=== PATIENT | male | born 1970 | race Caucasian/White ===

== ENCOUNTER → 2023-12-26 | Outpatient (CLI) | payer MEDICAID, SELFPAY ==
--- NOTE | 2023-12-26 09:58 | CT_ITS ---
CT BILATERAL LOWER EXTREMITY WITH 3-D IMAGING CLINICAL INDICATION: Templating for right GREY. TECHNIQUE: Axial CT images of the bilateral lower extremity (including both hips and both knees) was performed without IV contrast material. Coronal and sagittal reformats were provided. The protocol utilizes one or more of the following dose reduction techniques: automated exposure control, adjustment of mA and/or kV according to patient size, and/or use of iterative reconstruction technique. RADIATION DOSAGE (If Supplied By Facility): CTDIvol = ( 13.84 ) mGy, DLP = ( 859.33 ) mGycm COMPARISON: Pelvis, right hip, and right knee radiographs dated 11/16/2023. FINDINGS: Bones: There is severe degenerative arthrosis of the right hip joint with [id number], marginal osteophyte formation, remodeling of the articular surfaces, and subchondral sclerosis/cyst formation. There is moderate degenerative arthrosis of the left hip joint with moderate joint space narrowing. There is degenerative disc disease in the visualized lumbosacral spine. There are small enthesophytes at the superior poles of the patellae bilaterally at the distal insertion of the quadriceps tendons. The knee joint spaces are well-preserved. Osseous structures are intact without evidence of fracture or dislocation. No lytic or blastic osseous masses. Soft Tissues: There are tiny knee joint effusions bilaterally. The deep soft tissue structures are unremarkable. The superficial soft tissues are unremarkable without evidence of edema, hematoma, or foreign body. CT/Extremity Lower without Contra IMPRESSION: Degenerative arthrosis of the hip joints bilaterally, severe on the right. Small enthesophytes at the superior poles of the patellae bilaterally at the distal insertion of the quadriceps tendons. Tiny knee joint effusions bilaterally. Electronically Signed: Michael Myers MD at 8:28 EDT ,
== END | disposition home or self-care (01) ==
LOC: CT 09:56
PROVIDERS: PCP Internal Medicine Adolescent Medicine; Referring Provider Orthopaedic Surgery; Visit Provider Orthopaedic Surgery
DX: M16.11 Unilateral primary osteoarthritis, right hip (principal)
CPT/HCPCS: 73700

== ENCOUNTER 2024-01-05 05:56 | Day surgery (SDC) | payer MEDICAID, SELFPAY ==
--- NOTE | 2023-12-14 07:33 | EKG12_ITS ---
Test Reason : PREOP Blood Pressure : / mmHG Vent. Rate : 053 BPM Atrial Rate : 053 BPM P-R Int : 146 ms QRS Dur : 072 ms QT Int : 388 ms P-R-T Axes : -23 042 052 degrees QTc Int : 364 ms Sinus bradycardia Otherwise normal ECG Confirmed by Toro Gaxiola ([id number]), newspaper managing editor ADEN VALDEZ ([id number]) on 12/15/2023 8:17:36 AM Referred By: Akira Reyes Confirmed By:Toro Gaxiola
[2023-12-14 08:01] LABS: Absolute Lymphocyte Count 2.35 X10^3/uL (0.83-4.51); Absolute Neutrophil Count 5.9 X10^3/uL (2.0-7.7); Basophil# 0.05 X10^3/uL; Basophil% 0.5 % (0-1); Eosinophil# 0.35 X10^3/uL; Eosinophils% 3.7 % (0-5); Hematocrit 44.4 % (40-54); Hemoglobin 14.5 g/dL (13.0-16.5); Lymphocyte # 2.35 X10^3/ul (0.83-4.51); Lymphocyte % 24.5 % (19-41); Mean Corp Hgb Conc 32.7 g/dL (32-36); Mean Corpuscular Hgb 30.3 pg (27.0-32.0); Mean Corpuscular Volume 92.7 fL (80-94); Mean Platelet Vol. 10.5 fl (6.2-12.0); Monocyte# 0.84 X10^3/uL; Monocyte% 8.8 % (0-10); NRBC Flagged by Analyzer 0 % (0-5); Neutrophil # 5.93 X10^3/uL (2.7-7.7); Neutrophil % 61.9 % (47-70); Platelet Count 197 K/mm3 (150-450); RBC Distribution Width CV 13.4 % (11.6-14.6); RBC Distribution Width SD 46.3 fl (35.1-43.9); Red Blood Count 4.79 M/mm3 (4.6-6.2); White Blood Count 9.6 K/mm3 (4.4-11.0)
[2023-12-14 08:22] LABS: Anion Gap 4 (5-15); BUN 19 mg/dL (7-18); BUN/Creat Ratio 21.4 RATIO (10-20); Calcium,Total 9.3 mg/dL (8.5-10.1); Chloride 109 mmol/L (98-107); Creatinine, Serum 0.89 mg/dL (0.70-1.30); EST Glomerular Filtration Rate 96 mL/min (>60); Est Glom Filt Rate - Afr Amer 116 mL/min (>60); Glucose 112 mg/dL (74-106); Magnesium 1.9 mg/dL (1.6-2.6); Potassium 4.2 mmol/L (3.5-5.1); Sodium Level 141 mmol/L (136-145)
[2023-12-14 08:56] LABS: International Normalized Ratio 1.2
[2023-12-14 08:57] LABS: Partial Thromboplast Time 32.5 Seconds (24.1-36.2)
[2023-12-14 09:02] LABS: Hemoglobin A1c 5.3 % (3.8-5.6)
[2023-12-22 11:59] LABS: Cotinine Screen Blood <1.0 ng/mL (.); Fructosamine 217 umol/L (0-285); Nicotine Blood <1.0 ng/mL (.)
[2024-01-05] VITALS (11 sets, daily range): BP systolic 82–136; BP diastolic 50–85; PULSE 51–72; RESP 12–17; TEMP 36.2–36.8; O2SAT 94–100; BMI 26.9
[2024-01-05] MEDS: Scopolamine 1mg/72hr Patch 1 PATCH TD (06:38)
[2024-01-05] MEDS: Magnesium 2 GM for ERAS IV (06:38)
[2024-01-05] MEDS: Lactated Ringers 1,000 ML 999 ML IV (06:38)
[2024-01-05] MEDS: Acetaminophen 500 MG Tablet 1000 MG PO ×2 (06:39→14:08)
[2024-01-05] MEDS: Celecoxib 200 MG Capsule 400 MG PO (06:39)
[2024-01-05] MEDS: Gabapentin 600 MG Tablet PO (06:39)
--- NOTE | 2024-01-05 07:01 | PRE.ANES_ITS ---
ASA Classification* ASA Classification ASA Classification: 2 Assessment & Plan Anesthesia* Anesthesia Assessment Anesthesia Assessment: Discussed sedation and/or anesthesia options, risks, benefits, and alternatives with patient/parents/legal guardian/POA. Questions invited. The patient/parents/legal guardian/POA seems to understand and agrees to proceed with anesthesia plan. Reviewed the physical assessment, medical history, allergy history and patient home medications list prior to surgery/procedure/anesthetic and documented any changes. Performed airway and anesthesia risk assessments. Anesthesia Type Anesthesia Type: Spinal Anesthesia Focused Assessment* Temperature: 98.3 F Pulse Rate: 65 Blood Pressure: 128/85 Respiratory Rate: 16 Pulse Ox: 98 Airway Assessment Mouth opens: >3 cm Mallampati Score: II Focused Labs Anesthesia Preop lab: CBC WBC 9.6 K/mm3 (4.4-11.0) 12/14/23 07:32 RBC 4.79 M/mm3 (4.6-6.2) 12/14/23 07:32 Hgb 14.5 g/dL (13.0-16.5) 12/14/23 07:32 Hct 44.4 % (40-54) 12/14/23 07:32 Plt Count 197 K/mm3 (150-450) 12/14/23 07:32 CHEMISTRY Potassium 4.2 mmol/L (3.5-5.1) 12/14/23 07:32 Sodium 141 mmol/L (136-145) 12/14/23 07:32 Magnesium 1.9 mg/dL (1.6-2.6) 12/14/23 07:32 BUN 19 mg/dL (7-18) H 12/14/23 07:32 Creatinine 0.89 mg/dL (0.70-1.30) 12/14/23 07:32 Glucose 112 mg/dL (74-106) H 12/14/23 07:32 COAG PT 15.0 SECONDS (11.7-14.9) H 12/14/23 07:32 Pre-Assessment Diagnosis/Proposed Procedure Planned Operative Procedure(s): (R) ERAS, Total Hip Replacement Robotic Arm Assist Anesthesia History 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 When Was Last Pacemaker Check QUESTION #4 FULL TEXT: You/Your Family Experience fever (hyperthermia) with Anesthesia Last Oral Intake Last Oral intake: Last Oral Intake NPO since 22:00 01/05/24 06:29 Meds taken in AM with sips of Yes 01/05/24 06:29 water? 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 Female No 12/11/23 13:00 HX of Motion Sickness No 12/11/23 13:00 HX of N/V After Surgery No 12/11/23 13:00 Non-Smoker No 12/11/23 13:00 Duration of Surgery greater Yes 12/11/23 13:00 than 60 minutes Number of Risk Factors 1 12/11/23 13:00 PONV Score Low Risk 12/11/23 13:00 Height & Weight Height & Weight: Anesthesia: Height & Weight Height 5 ft 10 in 01/05/24 06:29 Weight: 85 kg 01/05/24 06:29 Body Mass Index (BMI) 26.9 01/05/24 06:29 Respiratory Assessment Respiratory Assessment - 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 Has anyone observed you stop No 12/11/23 13:00 breathing during sleep? STOP Results Negative 12/11/23 13:00 QUESTION #5 FULL TEXT : Do you snore loudly (louder than talking or can be heard through closed doors)? 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 Specify any problems Hx of Preganancy in last 3 N/A 12/11/23 13:00 Months Nurse Filling Out Transfusion NBUCHER 12/11/23 13:00 & Questions: Date: 12/11/23 12/11/23 13:00 Time: 13:02 12/11/23 13:00 Patient unable to answer at this time (ie. 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 Hx Now No 12/11/23 13:00 Gestational Age (in weeks): EDC: Hx Hx Para Hx Section SAB No 12/11/23 13:00 Active Medications Active Medications: Current Medications Generic Name Dose Route Start Last Admin Trade Name Freq PRN Reason Stop Dose Admin Acetaminophen 1,000 mg 01/05/24 08:00 01/05/24 06:39 Acetaminophen 500 Mg Tablet PO 01/05/24 08:01 1,000 mg X1 ONE Administration Celecoxib 400 mg 01/05/24 08:00 01/05/24 06:39 Celecoxib 200 Mg Capsule PO 01/05/24 08:01 400 mg X1 ONE Administration Dexamethasone Sodium Phosphate 10 mg 01/05/24 08:00 Dexamethasone 10 Mg/Ml Vial IV 01/05/24 08:01 X1 ONE Gabapentin 600 mg 01/05/24 08:00 01/05/24 06:39 Gabapentin 600 Mg Tablet PO 01/05/24 08:01 600 mg X1 ONE Administration Lactated Ringer's 1,000 mls @ 999 mls/hr 01/05/24 08:00 01/05/24 06:38 IV 01/05/24 09:00 999 mls/hr .Q1H1M ALIZA Administration Cefazolin Sodium 2 gm/ Sodium 110 mls @ 150 mls/hr 01/05/24 08:00 Chloride IV 01/05/24 08:43 PREOP ONE Tranexamic Acid 2,000 mg/ 120 mls @ 660 mls/hr 01/05/24 08:00 Sodium Chloride IV 01/05/24 08:10 X1 ONE Lactated Ringer's 1,000 mls @ 125 mls/hr 01/05/24 08:00 IV 01/05/24 15:59 .Q8H ALIZA Magnesium Sulfate 2 gm/ 104 mls @ 208 mls/hr 01/05/24 08:00 01/05/24 06:38 Dextrose IV 01/05/24 08:29 208 mls/hr X1 ONE Administration Lactated Ringer's 1,000 mls @ 15 mls/hr 01/05/24 06:30 IV .Q48H ALIZA Insulin Human Lispro 1 - 6 unit 01/05/24 08:00 Insulin Lispro 100 Unit/Ml Insuln.Pen SC Q4H PRN PRN BG>/= 180, SEE PROTOCOL Protocol Scopolamine HBr 1 patch 01/05/24 08:00 01/05/24 06:38 Scopolamine 1mg/72hr Patch TD 01/05/24 08:01 1 mg X1 ONE Administration PFSH Medical History Wears glasses Arthritis BPH (benign prostatic hyperplasia) Prostate disease High cholesterol Former smoker History of fracture of clavicle Osteoarthritis of right hip Right hip pain Home Medications ?Medication ?Instructions ?Recorded ?Last Taken ?Type amlodipine 10 mg tablet 10 mg PO DAILY 08/14/22 01/05/24 History naproxen 500 mg tablet (Naprosyn) 500 mg PO BID 08/14/22 Unknown History tamsulosin 0.4 mg capsule 0.8 mg PO DAILY 08/14/22 01/05/24 History atorvastatin 40 mg tablet 40 mg PO QDAY 11/16/23 01/04/24 History varenicline 1 mg tablet (Chantix) 1 mg PO BID 12/11/23 01/04/24 History Allergy/AdvReac Type Severity Reaction Status Date / Time No Known Allergies Allergy Verified 01/05/24 06:27 Surgical History History of umbilical hernia repair History of repair of left rotator cuff History of tonsillectomy Social History Smoking Status: Former smoker Review of Systems (Anesthesia) ROS Narrative System reviewed and no additional complaints, except as documented.
[2024-01-05 07:12] LABS: Bedside Glucose 107 mg/dL (74-106)
--- NOTE | 2024-01-05 07:21 | PCM.HP.BLA ---
History and Physical Date of Admission: 01/05/24 [facility] [address] [place] [address] OFFICE VISIT Date of Service: 11/16/23 MR#: [id number] Acct: [id number] Name: AGNES STEVENS Rep #: [id number] : 1970 Provider: Dr. Akira Reyes DO Age/Sex: 53/M [place] [facility] [place] Status: Signed Intake Vital Signs 08/14/2313:09 11/15/2409:24 Height 5 ft 10 in 5 ft 10 in Weight: 186 lb 6 oz BMI 26.7 Intake Visit Reasons: RIGHT HIP Chief Complaint: right hip pain Accompanied by: Self Allergies No Known Allergies Allergy (Unverified 11/16/23 10:29) Medications ?Medication ?Instructions ?Recorded ?Confirmed ?Type amlodipine 10 mg tablet tablet PO 08/14/22 11/16/23 History naproxen 500 mg tablet (Naprosyn) 500 mg PO BID 08/14/22 11/16/23 History tamsulosin 0.4 mg capsule ea PO 08/14/22 11/16/23 History atorvastatin 40 mg tablet 40 mg PO QDAY 11/16/23 11/16/23 History PFSH Medical History (Updated 11/16/23 @ 11:[address] Akira Reyes DO) Osteoarthritis of right hip Right hip pain Social History (Updated 11/16/23 @ 10:54 by Sarahi Russell) Smoking Status: Current every day smoker HPI RIGHT HIP Details: This documentation accurately reflects the service provided and the decisions made by me, Dr. Akira Reyes DO 11/16/23 0804. Part of today?s visit was documented by [ ], acting as scribe. AGNES STEVENS is a 53 year old M here today for right hip pain. Patient notes that he has had right hip pain for about 2 years. He states that when he was in high school he hurt his hip playing basketball. He was diagnosed with bursitis and he did PT until recently. Patient denies any prior surgeries to his hip or his back. He states that he has groin pain and pain in the joint. He denies any radiating pain, numbness or tingling. He denies any back pain. He notes that he saw Dr Peres and he had 4 injections into his lateral hip which was helpful until the last session. His last injection was over 3 months ago. He denies any physical therapy. He has increased pain putting on socks and ambulation. He states that when he stands his pain increases. He is taking naproxen for pain. He had xrays in 08/14/22. He states that he tore his ACL 12 years ago and notes that he has no knee pain. Patient has a clicking into his knee. He denies any bracing. Ortho Exam General General: Yes no acute distress Neurologic: Yes alert and Yes oriented x3 Psychologic: Yes reasonable and appropriate Right Knee Skin/Wound: Yes CDI, No erythema, No ecchymosis and No swelling Knee ROM: Yes ROM-Extension -20 to 0 (full) and Yes ROM-Flexion 0-140 Examination: No Med jt line tenderness, No Lat jt line tenderness and No Berenice's Test Stability: 3+: Anterior Drawer, 3+: Elvira and 3+: Posterior Drawer KNEE: dry skin and hair loss on lower leg. Right Hip Skin: No Ecchymosis, No soft tissue swelling and No Erythema internal rotation @90 degree flexion: 10 degrees external rotation @90 degree extension: 12 degrees HIP: pain with IR/ER He is able to plantarflex and dorsiflex the ankle Head: Normocephalic Atraumatic Chest: symmetrical rise, non-labored breathing, no audible wheeze Abdomen: no guarding, non-rigid Supplemental Info 08/14/2022 x-ray right hip: advanced hip arthrosis joint space narrowing subchondral cystic changes 08/14/2022 x-ray lumbar spine: Multilevel endplate spondylosis multilevel degenerative disc disease with multilevel disc space narrowing lower lumbar facet arthrosis Coding Level of Care Code Off vis,est,level 4 Diagnoses Primary osteoarthritis of right hip M16.11 Osteoarthritis type: primary Old complete tear of anterior cruciate ligament of right knee M23.51 Assessment and Plan Assessment and Plan (1) Osteoarthritis of right hip: Status: Acute Qualifiers: Osteoarthritis type: primary Qualified Code(s): M16.11 - Unilateral primary osteoarthritis, right hip (2) Old complete tear of anterior cruciate ligament of right knee: Status: Acute Orders: Orders HIP, UNI W/ Pelvis 2-3 Views Today M16.11 - Unilateral primary osteoarthritis, right hip Knee 4 or More Views Today M25.561 - Pain in right knee Plan Spoke with the patient about the anatomy of the hip and etiology of his pain. Explained that his osteoarthritis has progressed dramatically and his hip has collapsed. This has contributed to his right leg being shortened. Spoke with the patient about his options- anti inflammatories, injections, physical therapy, or a total hip arthroplasty. Explained he needs to stop smoking 6 weeks prior to and after surgery due to the increased infection risk. Spoke with him about the total hip arthroplasty procedure, risks and benefits. Risks, benefits and alternatives of surgery reviewed including but not limited to bleeding, infection, nerve, foot drop, artery and/or tissue damage, fracture, VTE, leg length discrepancy, dislocation, need for hip precautions, continued pain and expected post-operative course. He will be on a blood thinner post op and he is unable to take NSAIDs. He is also unable to take NSAIDs 1 week prior to surgery. Explained the risk of continued leg length discrepancy. He will need a CT scan for the makoplasty. Patient will be on hip precautions for 3 months. Patient will be same day surgery although he has multiple stairs at home. He will use a walker and transition to a cane, with physical therapy. He will continue to improve and it may take 2 years to completely recover. 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 He should speak with his PCP about chantix to help him stop smoking. He also needs to stop for 6 weeks post op as well. He will need to be tested for nicotine 3 weeks prior to surgery. He wanted to try an over the counter knee brace prior to trying an ACL brace. Tentative surgery date January 05, 2024 Follow up for 2 week post op or sooner if pain, swelling, numbness or associated symptoms, or concerns develop. All questions answered. Patient in agreement of plan. 11/16/23 1144 <Electronically signed by Akira Reyes DO> Date Akira Reyes DO I have examined the patient and the H&P has been reviewed. There are no clinical changes since date of exam.
--- NOTE | 2024-01-05 08:00 | FEM_PTH ---
PATIENT: AGNES STEVENS [place] [facility] [place][id number] AGE/SX: 53/M ROOM: RE01/05/[address]: Dr. Akira Reyes DO : 1970 BED: DIS: 01/05/2024 SPEC #: [id number] RECD: 01/05/24 11:14 STATUS: PARTH REMarbella #: [id number] SUMIT: 01/05/24 08:[address]: Akira Reyes DEPT: SURGICAL PATHOLOGY RECD BY: Magy Magallanes ENTERED: 01/05/24 12:51 SP TYPE: FEM HEAD OTHR DR: Dr. Mark Tolliver MD Tissues: Femoral region, NOS Procedures: Decalcification bone/plaque Surgery Specimen Level V HEADER OPERATION: Total hip replacement robotic arm assist PRE-OP DIAGNOSIS: Osteoarthritis of right hip TISSUE SUBMITTED: Right hip bone and tissue MICROSCOPIC DIAGNOSIS Right hip bone and soft tissue, total hip replacement/resection: Femoral head with degenerative osteoarthritic changes. Fragments of dense fibroconnective tissue and reactive synovial tissue. SJ: 01/08/2024 MICROSCOPIC DESCRIPTION Slides are reviewed. GROSS DESCRIPTION Received is one container labeled with the patient's name and designated bone and soft tissue right hip. The specimen consists of a femoral head with portion of femoral neck. The deformed femoral head measures 5.5 x 6.0 x 3.5 cm. A portion of femoral neck measures up to 1.5cm in length. Also present attached to the femoral head is a piece of soft tissue measuring 2.5 x 1.0 x 0.5cm. Detached piece of tissue entirely consists of bone reaming which measures in aggregate 6.0 x 6.0 x 1.5cm. Special Assets Officer sections are submitted in two cassettes as follows: 1 - soft tissue attached to femoral head, entirely submitted, 2 - femoral head after decalcification. / SJ. 01/05/2024 TC:5 CPT: 35173, 19767
[2024-01-05] MEDS: Cefazolin 2 GM in 0.9% Normal Saline (100mL Bag) 100 ML IV ×2 (08:09→14:09)
[2024-01-05] MEDS: dexAMETHasone 10 MG/ML Vial IV (08:25)
[2024-01-05] MEDS: TRANEXAMIC ACID 2,000 MG in 0.9% Normal Saline (100mL Bag) 100 ML 660 MG IV (08:25)
[2024-01-05] MEDS: Lactated Ringers 1,000 ML 100 ML IV (09:00)
--- NOTE | 2024-01-05 10:35 | PCM.OP.BLANK ---
Operative Report Date of Procedure: 01/05/24 Preoperative diagnosis: Right hip DJD Postoperative diagnosis: Same Procedure: CT-guided Makoplasty assisted right total hip arthroplasty Implants: Jesus Accolade II stem size 5, 127 degree neck angle -2.5 head neck length 54 mm Trident II acetabular shell with 40 mm cancellous screw 36 mm ceramic head, 10 degree Trident X3 polyethylene insert. Anesthesia: Spinal EBL: 175 cc Complications: None Condition: Stable to PACU Stem Dryer Maintainer Markus Olivarez. My physician power plant assistant was a vital part of this case. He was important in appropriate retraction during the case, and protection of soft tissues during procedure. His intimate knowledge of the case and my steps aided in safe and expedient completion of the procedure as well as appropriate position of the extremity during the case. He was also vital in assisting with closure under my direct supervision. Indication for procedure: This is a 53-year-old male who has had long-standing arthrosis of the hip who has failed conservative treatment and wished to undergo total hip arthroplasty. We did discuss operative versus nonoperative intervention including risks of bleeding, infection , nerve artery tissue damage, need for further surgery, fracture, leg length discrepancy dislocation blood clot and need for postoperative physical therapy and postoperative expectations. An informed consent was signed. Procedure: Patient was met in the preoperative holding area once again the operative extremity was identified by both patient and physician and was marked. Patient was met by anesthesia . Anesthesia was started. patient was then positioned in the lateral decubitus position on a well-padded pegboard with an axillary roll. All bony prominences were checked and padded. The patient was prepped and draped in the usual sterile fashion. A timeout was called to ensure the proper patient procedure and extremity were being contemplated. Anatomic landmarks were palpated and marked for a standard posterior lateral approach. Prior to this the ASIS was palpated and 3 fingerbreadths proximal to this 3 pins were placed at a 45 degree angle into the iliac crest with good purchase, stab incisions were made with a 15 blade into the skin prior to placement. The Makoplasty array was then secured. A 10 blade scalpel was used to make a posterior incision through the skin and subcutaneous tissue. retractors were used and electrocautery was used to maintain meticulous hemostasis and dissect full-thickness flaps until the gluteal fascia was reached. The gluteal fascia was incised in line with the gluteal fibers. The bursal tissue was then freed from the underside and a Charnley retractor was placed. The femoral trochanteric checkpoint was placed and leg length was assessed using the trochanteric checkpoint and an EKG lead that was placed on the knee prior to prepping the leg .the fat pad was then elevated off of the external rotators with electrocautery and the external rotators were dissected off of the greater trochanter including the piriformis and were tagged with #1 Ethibond for later repair. The joint capsule opened with posterior trapdoor technique. The hip was surgically dislocated. The measurement on the preoperative CT from the top of the lesser trochanter to the femoral neck cut was marked Hohmann was placed around the lesser trochanter. A neck cutting guide was used to heather the neck with a Bovie and an oscillating saw was used complete the femoral neck cut. The femoral head was then removed and sized. We then turned our attention to the acetabulum. A Bovie was used to make a perforation in the anterior joint capsule and a Savage retractor was placed this was repeated in the 6 o'clock position and a wide carolina was placed there. With a long handled knife the labral and pulvinar tissue were removed. We then registered the acetabulum with the pointing array and confirmed our landmarks. Once the socket was thoroughly prepared and labral tissue and pulvinar was removed we single reamed with the robotic arm. We then used the robotic arm to position the acetabular implant and impacted it into place under robotic guidance. We then proceeded to place a posterior superior screw by drilling first measuring and inserting the screw. We then inserted a trial liner. And turned our attention back to the femur at this point a femoral elevator was used. As well as a pointed wide Hohmann around the lesser trochanter and a Hohmann to help retract the gluteus medius. A box chisel was used to remove excess lateral neck followed by a canal finder and a lateralizing reamer. This was followed by sequential broaches. Attention was made of the version within the canal based on preoperative templating. Once the final broach was seated we then trialed reduced the hip it was determined that a 127 degree neck angle with a -2.5 neck length was the appropriate size. We then checked stability with shuck testing as well as flexion and internal rotation. then proceeded with hip extension and checked leg lengths at the knees and heels as well as with the trochanteric checkpoint and knee EKG lead. At this point trials were removed. A liner was inserted to the cup. The femoral stem was inserted. We re-trialed and then proceeded to impact the femoral head onto the Bharath taper. We then surgically reduce the hip check stability again and leg lengths and were satisfied. Betadine rinse was allowed to sit for 5 minutes while everyone changed their gloves. Thorough irrigation was performed. Followed by closure of the external rotators with #2 FiberWire followed by closure of gluteal fascia with #1 Ethibond. 0 Vicryl fat stitches and 2-0 Vicryl subcutaneous stitches and shawn in the skin. [place] were placed in the skin pin sites over the iliac crest and dressed with a Mepilex dressing. The main incision was dressed with a Mepilex ag dressing and an abduction pillow was placed. Patient tolerated the procedure well there was no intraoperative complications all counts were correct and the patient was brought back to the PACU in stable condition
--- NOTE | 2024-01-05 10:36 | PCM.DC ---
Discharge Instructions Diet Discharge Diet: No restrictions Activity Weight Bearing Status: Weight bearing as tolerated Dressing / Incision Call your doctor if you observe: Shortness of breath and Chest pain Additional Dressing/Incision Instructions:: Do not shower 72hrs. Begin daily showering warm water antibacterial soap postop day #3( 72hrs Post-operatively) and then daily. Leave the dressing on for 72 hours postoperatively then may remove prior to first shower and change dressing daily after this until no drainage for 2 consecutive days then may leave open to air. Follow hip precautions that were reviewed in hospital. Wear compression stockings, may remove at night. Start physical therapy as directed in hospital. Follow prescriptions instructions do not take any other pain medication or differ dosing without consulting your physician. Do not take oral NSAIDs until blood thinner has been completed , then may begin the day after completion if needed . Call Dr. Reyes's office with any concerns. Follow Up Care Please Follow Up With: Akira Reyes DO When: 2 weeks Test Results: Test results from this visit will be discussed in further detail at your follow-up appointment, if applicable. Discharge Plan Admission Primary Reason for Your Visit: Right total hip arthroplasty Attending Provider: Akira Reyes Primary Care Provider: Mark Tolliver Instructions Print Language: [place] Discharge Orders/Prescriptions Prescriptions: New acetaminophen 500 mg tablet 1,000 mg PO Q6H Qty: 90 0RF cephalexin 500 mg capsule 1,000 mg PO Q8H Qty: 4 0RF Rx Instructions: Take 2 tabs before you go to bed and 2 tabs after 5 AM morning after surgery when you wake up oxycodone 5 mg tablet 5 - 10 mg PO Q6H PRN (Reason: pain) 7 Days Qty: 60 0RF Eliquis 2.5 mg tablet 2.5 mg PO BID Qty: 42 0RF Rx Instructions: Begin morning after surgery. Continued tamsulosin 0.4 mg capsule 0.8 mg PO DAILY Patient Comments: TAKE 2 CAPSULES BY MOUTH EVERY DAY amlodipine 10 mg tablet 10 mg PO DAILY atorvastatin 40 mg tablet 40 mg PO QDAY varenicline [Chantix] 1 mg tablet 1 mg PO BID Held naproxen [Naprosyn] 500 mg tablet 500 mg PO BID Hold Instructions: Resume on 01/20/24. May resume after completion of blood thinner if needed Other Ambulatory Orders: 12 Lead EKG (Routine) Timeframe: 20231214 Location: None Selected Ordered By: Dr. Akira Reyes Referrals / Follow Up: Mark Tolliver MD [Primary Care Provider] - Disposition Disposition (needs filled in before D/C Order can be placed): Home, Self Care
--- NOTE | 2024-01-05 10:55 | RAD_ITS ---
EXAM: XR RIGHT HIP WITH PELVIS WHEN PERFORMED, 2 VIEWS CLINICAL INDICATION: post op -- in PACU TECHNIQUE: Two or three views of the right hip with pelvis when performed. COMPARISON: No relevant prior studies available. FINDINGS: BONES/JOINTS: Right hip prosthesis components appear well positioned and well aligned. SOFT TISSUES: There is a row of superficial surgical clips over the right hip and soft tissue swelling and gas consistent postoperative exam. The soft tissues are not fully included. RAD/Hip Min 2 Views (Portable) IMPRESSION: Well-positioned right hip prosthesis components and early postoperative soft tissue changes. Electronically Signed: Tg Reno MD at 1:44 EDT ,
--- NOTE | 2024-01-05 11:37 | PCM.POSTANE2 ---
Anesthesia Postop Eval I Sum Anesthesia Postop Eval I Summary Anesthesia Postop Eval I Summary: Anesthesia Postop Eval I: Assessment Summary Airway patent Spontaneous unlabored respirations Mental status nausea Vomiting Anesthesia Postop Eval I: Fluid Summary Crystalloid volume administer (ml) Colloids volume administered ( ml) Blood Product volume administered (ml) Total IV fluid infused Anesthesia Postop Eval I: Summary Notes Anesthesia Complication Anesthesia Complication Comment: Post-operative progress note Anesthesia: Postop Eval II Evaluation Mental status: Awake and Calm Pain Level: 2 nausea: No Vomiting: No Complications Anesthesia Complication: No
--- NOTE | 2024-01-05 12:31 | PCM.POST.ANE ---
Anesthesia: Postop Eval I Current Vital Signs Temperature: 97.3 F Pulse Rate: 54 Blood Pressure: 82/61 Respiratory Rate: 14 Pulse Ox: 96 Oxygen Delivery Method: Room Air Assessment Airway patent: Yes Spontaneous unlabored respirations: Yes Mental status: Awake and Calm nausea: No Vomiting: No Anesthesia Complication: No Fluid Hydration Crystalloid volume administer (ml): 1,200 Total IV fluid infused: 1,200 Progress Note Anesthesia document: Postop Eval 1 completed: Yes
== END 2024-01-05 15:57 | disposition home or self-care (01) ==
LOC: SDC 05:57 → AC 05:58
PROVIDERS: Anesthesiology; PCP Internal Medicine Adolescent Medicine; Referring Provider Orthopaedic Surgery; Visit Provider Orthopaedic Surgery
PROC: 8E0Y0CZ Robotic Assisted Procedure of Lower Extremity, Open Approach (ICD-10-PCS; CPT 27130; principal; 2024-01-05 07:30)
DX: M16.11 Unilateral primary osteoarthritis, right hip (principal); F17.200 Nicotine dependence, unspecified, uncomplicated; I10 Essential (primary) hypertension; Z79.899 Other long term (current) drug therapy; E78.00 Pure hypercholesterolemia, unspecified; Z98.890 Other specified postprocedural states
CPT/HCPCS: 27130; 01214; 80323; 36415; 73502; 80048; 82962; 82985; 83036; 83735; 85025; 85610; 85730; 86850; 86900; 86901; 87081; 88307; 88311; 93005; 97162; C1713; C1776; J7120; G0480; J2405

== ENCOUNTER 2024-03-11 16:00 | Outpatient (RCR) | payer MEDICAID, SELFPAY ==
--- NOTE | 2024-01-13 09:32 | HP.PTEVAL ---
Patient's Visit Information Visit Information Visit Information: AGNES STEVENS is a 53 year old M referred to Physical Therapy by Dr. Akira Reyes DO with a diagnosis of R GREY, Posterior/lateral approach DOS: 01/05/24. Date of Evaluation: 01/13/24 Physical Therapist: Rowdy Ybarra DPT Visit Plan Frequency: 2x /Week Duration: 6 Weeks Plan: Start with active ROM of R hip, HS stretching. Progress gait with LRD as able. Add in functional strengthening. May use ice to assist with pain management. Foam rolling for muscle spasms of RLE. Subjective Subjective: Pt. is here today for his initial evaluation with diagnosis of R GREY. DOS: 01/05/24. Pt. arrives today using FWW with good tolerance. Pt. reports having pain, but not terrible. Pt. denies N/T, no calf pain or blurred vision. Pt. pleased thus far with his surgery. Pt. had a posterior/lateral approach. 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 Pt. reports pain was very intense prior to surgery and is pleased thus far. Pt. has bandage in place to take off later this date. Pt. is sleeping in hair with good tolerance. He reports being stiff with getting up/down, but walking is decent. Pt. is having trouble lifting his leg but this is expected. Pt. is hopeful to get back to previous levels of activities without limitations. I discussed hip restrictions with patient with good retention. Pain R hip: Pain Intensity (Out of 10): 4 Pain Intensity Range: 2 and 6 Objective Objective: POSTURE: Pt. has decent posture in stance. Slight wt. shift to L side. Good Wbing throughout RLE. PALPATION: Pt. has bandage in place, no signs of infection. Bandage to be removed tomorrow. Pt. has no calf pain or redness noted. NEURO: normal DTR and normal sensation throughout BLEs. ROM: R HIP: PROM: flexion 80deg, abd 30deg ext 10deg, IR/ER DNT. Tightness noted in B HS. MMT: Pt. was good quad set and glute set. UNable to complete SLR. RLE: Knee: ext 23.5#, flexion 18.1#. LLE: ext 38#, flexion 29.8#. GAIT: pt. ambulates well with FWW. Lacks extension during end of stance phase and limited hip flexion during swing. HEavy use of AD to complete. Pt. reports minimal pain. STAIRS: step to pattern with use of BHR. TU.8sec with FWW 30sec sit to stand rep test: 5 without use of UEs. Balance/Special Test Scores WOMAC Total Score: 48 WOMAC Percentatge: 50.0000 Goals Goal 1:: LTG: Pt. to be I with HEP. Goal Time Frame: 4-6 Weeks Goal 2:: STG: pt. to sleep throughout the night without increase in R hip pain. Goal Time Frame: 2 Weeks Goal 3:: STG: Pt. to complete SLR x10 without extensor lag indicating increased quad and hip flexor strength. Goal Time Frame: 2 Weeks Goal 4:: LTG: Pt. to have symmetrical strength between BLEs. Goal Time Frame: 4-6 Weeks Goal 5:: LTG: pt. to ambulate with normal gait pattern without AD for 1200'+. Goal Time Frame: 4-6 Weeks Goal 6:: LTG: Pt. to negotiate steps with 1 HR with reciprocal pattern without increase in R hip pain. Goal Time Frame: 4-6 Weeks Rehabilitation Potential Physical Therapy Diagnosis: Pt. has signs and symptoms consistent with R GREY, Posterior/lateral approach DOS: 01/05/24. Pt. has marked hypomobility, weakness, difficulty with walking. He would benefit from PT to address the above limitations progression back to all previous levels of function. Rehabilitation Potential: Excellent Anticipated Interventions Patient/Client Instruction: Educate patient on: Condition, Plan of Care, Risk Factors and Benefits of Fitness Program For the Purpose of:: To facilitate caregiver knowledge, To improve self management, To prevent re-injury, To improve ability to perform tasks related to life management and To improve tolerance to ADL's Therapeutic Exercise to Include: Strength training, Power training, Endurance training, Balance training, Postural training, Flexibilty training, Gait and locomotor training, Passive ROM, Active ROM and Dynamic Lumbar Stabilization For the Purpose of:: To decrease pain, To increase ROM, To improve nutrient delivery to tissue, To increase oxygenation perfusion, To improve muscle performance and motor function, To improve ability to perform ADL's, To decrease soft tissue restriction, To increase flexibility/ROM, To improve endurance, To improve balance and To improve safety with gait Cryotherapy (ice pack, ice massage): Yes For the Purpose of:: To decrease pain, To decrease swelling/inflammation, To increase ROM and To improve nutrient delivery to tissue Text: Thank you for the opportunity to evaluate your patient. For Medicare and Medicare HMO plans, please review the plan of care and approve it. It will need to be FAXED BACK to us at [phone] for Medicare purposes. For Medicare only, by signing this I certify the plan of care. Please let me know if there are questions or concerns regarding this plan of care. Physician Signature: Date:
--- NOTE | 2024-03-01 15:00 | HP.PTDCSUM ---
Discharge Summary D/C summary: It has been my pleasure to treat AGNES STEVENS referred by Dr. Akira Reyes DO, with the diagnosis of R GREY, Posterior/lateral approach DOS: 01/05/24 for a total of 9 visit(s). Discharge Date: 02/11/24 Please see the following information for a summary of their discharge status. Subjective Subjective: Pt. reports overall doing great. Pt. reports being 90% better overall. Pt. reports no pain currently. Pain R hip: Pain Intensity (Out of 10): 0 Overall Improvement % Improvement: 90 Objective Objective/Function: ROM: Pt. has good ROM of his R hip. No major concerns here. MMT: RLE: hip: flexion 28.1#, abd 21.3# LLE hip: flexion 37.8#, abd 29.3# GAIT: normal without use of AD. STAIRS: Pt. is able to negotiate without HR with recirpocal pattern. Pt. was able to ambulate 1601' with 6 MWT Goals Goal 1:: LTG: Pt. to be I with HEP. Goal Progress: Goal Met Goal 2:: STG: pt. to sleep throughout the night without increase in R hip pain. Goal Progress: Goal Met Goal 3:: STG: Pt. to complete SLR x10 without extensor lag indicating increased quad and hip flexor strength. Goal Progress: Goal Met Goal 4:: LTG: Pt. to have symmetrical strength between BLEs. Goal Progress: Progressing Goal 5:: LTG: pt. to ambulate with normal gait pattern without AD for 1200'+. Goal Progress: Goal Met Goal 6:: LTG: Pt. to negotiate steps with 1 HR with reciprocal pattern without increase in R hip pain. Goal Progress: Goal Met Plan Plan: DC to HEP at this point in time. D/C Information d/c sentence: If there are questions or concerns regarding this patient's physical therapy, please feel free to call me at [phone]. Thank you for the referral of this patient. Sincerely, Rowdy Hood Sipos, DPT Balance/Gait/Functional tests Balance/Special Test Scores TUG Test Time Seconds: 8.1 Tug Test: <10 sec.=free mobile 30 Second Chair Rise Test Seconds: 17 WOMAC Total Score: 1 WOMAC Percentage: 98.9200 Improvement % Improvement: 90
--- NOTE | 2024-03-02 10:43 | HP.PTREVAL_ITS ---
Re-Evaluation Intro: Dr. Akira Reyes, DO, It has been my pleasure to treat AGNES STEVENS over the last 10 visits for R GREY, Posterior/lateral approach DOS: 01/05/24. Please see the progress note below for an update on the physical therapy plan of care! Subjective Subjective: Pt. received a new script for low back pain with lumbar spondylosis. I am opening the chart back up and re assessing his symptoms today for his back. Pt. reports having frequent back soreness. He reports this has been going on for a while. Prior to his surgery. Stiffness in AMs, but also stiff after prolonged sitting or standing for longer periods. No distal LEs. No myotomal weakness note d. Objective Objective/Function: LUMBAR ROM: flexion min loss increase NW, ext min loss increase NW, SB nil loss NE, rotation nil loss bilat NE. MMT 5/5 throughout. No myotomal weakness noted. Core strength: fair - slump test, no discogenic symptoms noted. PAs no issues noted. SKTC alleviated symptoms. Overall he is doing okay. I agree with his spondylosis with some limited lumbar ROM. He would benefit from some core stability and ROm exercises to maintain his flexibility. Plan Plan Plan: 1) lumbar ROM and neutral spine core stability I gave him SKTC- which alleviated his symptoms and neutral spine core stability exercises to work on. He is to do these for 2 weeks then come back to PT is not improving. Balance/Gait/Functional tests Balance/Special Test Scores TUG Test Time Seconds: 8.1 Tug Test: <10 sec.=free mobile 30 Second Chair Rise Test Seconds: 17 WOMAC Total Score: 1 WOMAC Percentage: 98.9200 Goals Goals Goal 1:: LTG: Pt. to be I with HEP. Goal Time Frame: 4-6 Weeks Goal Progress: Goal Met Goal 2:: STG: pt. to sleep throughout the night without increase in R hip pain. Goal Time Frame: 2 Weeks Goal Progress: Goal Met Goal 3:: STG: Pt. to complete SLR x10 without extensor lag indicating increased quad and hip flexor strength. Goal Time Frame: 2 Weeks Goal Progress: Goal Met Goal 4:: NEW GOAL: Pt. to have full lumbar ROM without increase in symptoms. Goal Time Frame: 4-6 Weeks Goal Progress: Progressing Goal 5:: NEW GOAL: Pt. to be able to complete all work activities without increase in back symptoms. Goal Time Frame: 4-6 Weeks Goal Progress: Progressing Goal 6:: LTG: Pt. to negotiate steps with 1 HR with reciprocal pattern without increase in R hip pain. Goal Time Frame: 4-6 Weeks Goal Progress: Goal Met Anticipated Interventions Anticipated Interventions Patient/Client Instruction: Educate patient on: Condition, Plan of Care, Risk Factors and Benefits of Fitness Program For the Purpose of:: To facilitate caregiver knowledge, To improve self management, To prevent re-injury, To improve ability to perform tasks related to life management and To improve tolerance to ADL's Therapeutic Exercise to Include: Strength training, Power training, Endurance training, Balance training, Postural training, Flexibilty training, Gait and locomotor training, Passive ROM, Active ROM and Dynamic Lumbar Stabilization For the Purpose of:: To decrease pain, To increase ROM, To improve nutrient delivery to tissue, To increase oxygenation perfusion, To improve muscle performance and motor function, To improve ability to perform ADL's, To decrease soft tissue restriction, To increase flexibility/ROM, To improve endurance, To improve balance and To improve safety with gait Cryotherapy (ice pack, ice massage): Yes For the Purpose of:: To decrease pain, To decrease swelling/inflammation, To increase ROM and To improve nutrient delivery to tissue Re-Evaluation Ending Re-evaluation ending: Please do not hesitate to contact me at [phone] by phone or if you have questions or concerns regarding this new plan of care! Sincerely, Rowdy Ybarra DPT
== END 2024-03-11 19:00 | disposition home or self-care (01) ==
LOC: PT 16:00
PROVIDERS: PCP Internal Medicine Adolescent Medicine; Referring Provider Orthopaedic Surgery; Visit Provider Orthopaedic Surgery
DX: M16.11 Unilateral primary osteoarthritis, right hip (principal); Z96.641 Presence of right artificial hip joint
CPT/HCPCS: 97110; 97161; 97530